=== PATIENT | male | born 1975 | race African-American/Black ===

== ENCOUNTER 2024-02-26 11:43 | Emergency (ER) | payer SELFPAY ==
[~2024-02-26] VITALS: Ht 175.3 cm; Wt 73.0 kg
[2024-02-26 11:52] VITALS: BP 120/68; PULSE 63; RESP 16; TEMP 98.1; O2SAT 100
[2024-02-26] MEDS ORDERED: LIDO700A30 TP (14:19)
[2024-02-26] MEDS ORDERED: IBUP-2029 MT (14:19)
[2024-02-26] MEDS ORDERED: LIDOCAINE 5% PATCH TOP SCH (14:30)
[2024-02-26] MEDS ORDERED: IBUPROFEN 600MG TABLET PO ONE (14:30)
== END 2024-02-26 14:40 | disposition home or self-care (01) ==
LOC: ER 11:43
DX: M54.2 Cervicalgia (principal); M54.50 Low back pain, unspecified; V89.2XXA Person injured in unspecified motor-vehicle accident, traffic, initial encounter; Y93.89 Activity, other specified; Y92.410 Unspecified street and highway as the place of occurrence of the external cause; Y99.8 Other external cause status
CPT/HCPCS: 72050; 72100; 99284